=== PATIENT | male | born 1945 | race Caucasian/White ===

== ENCOUNTER → 2017-06-03 | Outpatient (CLI) | payer OTHER ==
[~2017-06-03] MED LIST: ALPH300C PO; ASCO1TAB2 PO; ASPI-496 PO; GLUC-88 PO; LISI40TA PO; MELA1TAB22 PO; METF500T4 PO; MULT1TAB13 PO; OMEP-110 PO; PRAZ5CAP2 PO; SAW/1TAB2 PO; SERT100T5 PO; SILD25TA PO; SIMV40TA3 PO; TAMS-11 PO; THIA100T6 PO; THYR30TA4 PO; UBIQ100C3 PO; VALS160T3 PO
[2017-06-03 10:50] LABS: ASPARTATE AMINO TRANSFERASE 24 U/L (15-37); BLOOD UREA NITROGEN 20 mg/dL (7-18)
== END | disposition home or self-care (01) ==
LOC: STAR 09:51
PROVIDERS: ATTEND Surgery
DX: Z01.818 Encounter for other preprocedural examination (principal); K42.9 Umbilical hernia without obstruction or gangrene; E11.9 Type 2 diabetes mellitus without complications; I10 Essential (primary) hypertension; K21.9 Gastro-esophageal reflux disease without esophagitis; F32.9 Major depressive disorder, single episode, unspecified; E78.00 Pure hypercholesterolemia, unspecified
CPT/HCPCS: 36415; 80053; 93005

== ENCOUNTER 2017-06-09 05:53 | Day surgery (SDC) | payer OTHER ==
[2017-06-03 10:44] VITALS: BP 140/69
[~2017-06-09] VITALS: Ht 175.3 cm; Wt 98.5 kg
[2017-06-09] MEDS ORDERED: LACTATED RINGERS 1,000 ML IV SCH (06:52)
[2017-06-09] MEDS ORDERED: LIDOCAINE 1%, 2ML SQ PRN (07:00)
[2017-06-09 07:01] VITALS: BP 140/69
[2017-06-09] MEDS ORDERED: BUPIVACAINE/PF 0.5% ONE (07:23)
[2017-06-09] MEDS ORDERED: EPINEPHRINE 1 MG/ML, 1ML ONE (07:23)
[2017-06-09] MEDS ORDERED: PROPOFOL 10 MG/ML, 20ML ONE (07:42)
[2017-06-09] MEDS ORDERED: EPHEDRINE 50 MG/ML, 1ML ONE (07:42)
[2017-06-09] MEDS ORDERED: DEXAMETHASONE 4 MG/ML, 1ML ONE (07:42)
[2017-06-09] MEDS ORDERED: ROCURONIUM 10 MG/ML,10ML ONE (07:42)
[2017-06-09] MEDS ORDERED: NEOSTIGMINE 1 MG/ML, 10ML ONE (07:42)
[2017-06-09] MEDS ORDERED: ONDANSETRON 2MG/ML, 2ML ONE (07:42)
[2017-06-09] MEDS ORDERED: CEFAZOLIN 1,000 MG ONE (07:42)
[2017-06-09] MEDS ORDERED: GLYCOPYRROLATE 0.2MG/1ML, 5ML ONE (07:42)
[2017-06-09] MEDS ORDERED: FENTANYL PF 250 MCG/5ML ONE (07:42)
[2017-06-09] MEDS ORDERED: OXYcodone 5 MG/5 ML ORAL.SOL UDC ONE ×2 (09:14→09:57)
[2017-06-09] MEDS ORDERED: FENTANYL PF 100 MCG/2ML ONE (09:14)
[2017-06-09] MEDS ORDERED: ACETAMINOPHEN 650 MG/20.3 ML UDC ONE (09:14)
[2017-06-09] MEDS ORDERED: KETOROLAC 30 MG/1 ML ONE (09:14)
[2017-06-09] MEDS: FENTANYL PF 100 MCG/2ML IV PRN ×2 (09:18→09:25)
[2017-06-09] MEDS: OXYcodone 5 MG/5 ML ORAL.SOL UDC PO PRN ×2 (09:21→09:58)
[2017-06-09] MEDS ORDERED: ACETAMINOPHEN 325 MG TABLET PO PRN (09:30)
[2017-06-09] MEDS ORDERED: PROMETHAZINE 25 MG/ML, 1ML IV PRN (09:30)
[2017-06-09] MEDS ORDERED: ALBUTEROL SULFATE 2.5 MG/3 ML NPPB PRN (09:30)
[2017-06-09] MEDS ORDERED: METOPROLOL 1 MG/ML, 5ML IV PRN (09:30)
[2017-06-09] MEDS ORDERED: KETOROLAC 30 MG/1 ML IV PRN (09:30)
[2017-06-09] MEDS ORDERED: hydrALAzine 20 MG/ML, 1ML IV PRN (09:30)
[2017-06-09] MEDS ORDERED: HYDROmorphone 2 MG/ML, 1ML ONE (09:35)
[2017-06-09] MEDS ORDERED: LABETALOL 5MG/ML, 20ML ONE (09:35)
[2017-06-09] MEDS: HYDROmorphone 1 MG/ML, 1ML IV PRN ×3 (09:41→10:08)
[2017-06-09] MEDS ORDERED: hydrALAzine 20 MG/ML, 1ML ONE (09:45)
[2017-06-09] MEDS ORDERED: LABETALOL 5MG/ML, 20ML IVPush PRN (10:00)
== END 2017-06-09 15:25 ==
LOC: OUT 05:53
PROVIDERS: ATTEND Surgery
DX: K42.0 Umbilical hernia with obstruction, without gangrene (principal); I10 Essential (primary) hypertension; E78.5 Hyperlipidemia, unspecified; E66.9 Obesity, unspecified; Z68.32 Body mass index [BMI] 32.0-32.9, adult; G47.33 Obstructive sleep apnea (adult) (pediatric); Z79.82 Long term (current) use of aspirin
CPT/HCPCS: 49653; 82962; C1781; J0171; J0360; J0690; J1100; J1170; J1885; J2405; J2704; J2710; J3010; J3490; J7120

== ENCOUNTER 2018-09-11 09:10 | Observation (INO) | payer OTHER, MEDICARE ==
[~2018-09-11] VITALS: Ht 175.3 cm; Wt 99.3 kg
[~2018-09-11 09:10] MED LIST changes: +METF500T17 PO; -METF500T4 PO; +SERT100T32 PO; -SERT100T5 PO; -THIA100T6 PO; +THIA100T67 PO
[2018-09-11 10:18] LABS: BASOPHILS # (AUTO) 0.02 x10^3/uL (0-0.1); BASOPHILS % (AUTO) 0 % (0-1); EOSINOPHILS # (AUTO) 0.26 x10^3/uL (0-0.4); EOSINOPHILS % (AUTO) 5 % (1-7); LYMPHOCYTES # (AUTO) 1.23 x10^3/uL (1-3.4); LYMPHOCYTES % (AUTO) 22 % (22-44); MD NO; MEAN CORPUSCULAR HEMOGLOBIN 32.4 pg (27.5-34.5); MEAN CORPUSCULAR HGB CONC 33.2 g/dL (33.2-36.2); MEAN CORPUSCULAR VOLUME 97.5 fL (81-97); MEAN PLATELET VOLUME 8.7 fL (7.4-10.4); MONOCYTES % (AUTO) 11 % (2-9); NEUTROPHILS # (AUTO) 3.48 x10^3/uL (1.8-6.8); NEUTROPHILS % (AUTO) 62 % (42-75); PLATELET COUNT 224 x10^3/uL (130-400); RED BLOOD COUNT 4.07 x10^6/uL (4.38-5.82); RED CELL DISTRIBUTION WIDTH 12.9 % (9.4-14.8)
[2018-09-11 10:29] LABS: INTERNATIONAL NORMALIZED RATIO 1.03 (0.93-1.1); PROTHROMBIN TIME 10.8 Seconds (9.6-11.5)
[2018-09-11 10:30] LABS: ALANINE AMINOTRANSFERASE 28 U/L (12-78); ALBUMIN 3.5 g/dL (3.4-5.0); ANION GAP 4 mmol/L (5-15); CALCIUM 8.7 mg/dL (8.5-10.1); CHLORIDE 107 mmol/L (98-107); CREATININE 1.11 mg/dL (0.7-1.3)
[2018-09-11 10:34] LABS: ALKALINE PHOSPHATASE 45 U/L (45-117); BILIRUBIN,TOTAL 0.4 mg/dL (0.2-1.0); TOTAL PROTEIN 6.6 g/dL (6.4-8.2); TROPONIN I < 0.015 ng/mL (0.000-0.045)
[2018-09-11] MEDS ORDERED: ACETAMINOPHEN 325 MG TABLET PO PRN (11:30)
[2018-09-11] MEDS ORDERED: ENALAPRILAT 1.25 MG/ML, 2ML IVPush PRN (11:30)
[2018-09-11] MEDS: INSULIN LISPRO 100 UNITS/ML, PEN SQ-INSULIN SCH ×3 (11:30→20:44)
[2018-09-11] MEDS ORDERED: TEMAZEPAM 15 MG CAPSULE PO PRN (11:30)
[2018-09-11] MEDS ORDERED: TEMPLATE NON-FORMULARY MED. (Melatonin/Pyridoxine Hcl (B6)** (Melatonin 3 Mg Tablet**) 1 T PO SCH (11:30)
[2018-09-11] MEDS: OMEPRAZOLE 20 MG CAPSULE.DR PO SCH (11:30)
[2018-09-11] MEDS ORDERED: SERTRALINE 100MG TABLET PO SCH ×2 (11:30→21:00)
[2018-09-11] MEDS ORDERED: ONDANSETRON 2MG/ML, 2ML IVPush PRN (11:30)
[2018-09-11] MEDS ORDERED: NITROGLYCERIN 0.4 MG/SPRAY SL PRN (11:30)
[2018-09-11] MEDS ORDERED: PRAZOSIN 5 MG CAPSULE PO SCH ×2 (11:30→21:00)
[2018-09-11] MEDS ORDERED: NITROGLYCERIN 0.4 MG BOTTLE (25 TABS) SL PRN ×2 (11:30)
[2018-09-11] MEDS: ASPIRIN 81 MG TABLET EC PO SCH (11:30)
[2018-09-11] MEDS: THYROID 30 MG TABLET PO SCH (11:30)
[2018-09-11] MEDS ORDERED: morphine SULFATE 10 MG/ML, 1ML IVPush PRN (11:30)
[2018-09-11] MEDS: THIAMINE 100MG TABLET PO SCH (11:30)
--- NOTE | 2018-09-11 11:38 | NUR ---
SBAR TO FITO FLETCHER VIA TELEPHONE
[2018-09-11 12:27] VITALS: BP 143/74
[2018-09-11] MEDS ORDERED: ENOXAPARIN 40 MG/0.4 ML SQ SCH (12:30)
[2018-09-11] MEDS: TAMSULOSIN 0.4 MG CAP.ER.24H PO SCH (13:47)
[2018-09-11] MEDS: ENOXAPARIN 40 MG/0.4 ML SQ SCH ×2 (14:00→22:59)
[2018-09-11 15:38] LABS: MICROSCOPIC NOT IND
[2018-09-11 15:47] LABS: CULTURE INDICATED? NO
[2018-09-11 16:06] LABS: TROPONIN I < 0.015 ng/mL (0.000-0.045)
[2018-09-11 20:42] VITALS: BP 149/83
[2018-09-11] MEDS ORDERED: SIMVASTATIN 40 MG TABLET PO SCH (21:00)
[2018-09-11] MEDS ORDERED: LISINOPRIL 20 MG TABLET PO SCH (21:00)
[2018-09-11 22:05] LABS: TROPONIN I < 0.015 ng/mL (0.000-0.045)
[2018-09-12 02:45] LABS: HEMOGLOBIN A1C 6.6 % (4.2-6.3)
[2018-09-12 02:48] VITALS: BP 113/68
[2018-09-12] MEDS: THYROID 30 MG TABLET PO SCH (05:46)
[2018-09-12] MEDS: INSULIN LISPRO 100 UNITS/ML, PEN SQ-INSULIN SCH ×2 (07:00→11:00)
[2018-09-12] MEDS ORDERED: REGADENOSON 0.4 MG/5 ML SYRINGE ONE (08:04)
[2018-09-12] MEDS: ASPIRIN 81 MG TABLET EC PO SCH (11:10)
[2018-09-12] MEDS: TAMSULOSIN 0.4 MG CAP.ER.24H PO SCH (11:11)
[2018-09-12] MEDS: OMEPRAZOLE 20 MG CAPSULE.DR PO SCH (11:11)
[2018-09-12] MEDS: THIAMINE 100MG TABLET PO SCH (11:11)
[2018-09-12 12:33] VITALS: BP 149/83
[2018-09-12] MEDS ORDERED: OMEP-110 PO (13:04)
[2018-09-12] MEDS ORDERED: POTA10TA11 PO (13:08)
[2018-09-12] MEDS ORDERED: FURO-93 PO (13:08)
== END 2018-09-12 14:45 | disposition home or self-care (01) ==
LOC: ED 10:01 → SUATTDRO 11:00 → EDIP 11:24 → INTOOBSV 11:24 → 5SO 12:14 → DCLOUNGE 09-12 14:30
PROVIDERS: ADMIT Internal Medicine; ATTEND Internal Medicine
DX: R07.9 Chest pain, unspecified (principal); I10 Essential (primary) hypertension; E11.9 Type 2 diabetes mellitus without complications; E66.9 Obesity, unspecified; E78.5 Hyperlipidemia, unspecified; F32.9 Major depressive disorder, single episode, unspecified; G47.33 Obstructive sleep apnea (adult) (pediatric); K21.9 Gastro-esophageal reflux disease without esophagitis; N40.0 Benign prostatic hyperplasia without lower urinary tract symptoms; Z68.32 Body mass index [BMI] 32.0-32.9, adult; Z80.42 Family history of malignant neoplasm of prostate; Z87.891 Personal history of nicotine dependence; Z90.79 Acquired absence of other genital organ(s); E03.9 Hypothyroidism, unspecified; F43.10 Post-traumatic stress disorder, unspecified
CPT/HCPCS: 36415; 71045; 78452; 80053; 81003; 82962; 83036; 83880; 84443; 84484; 85025; 85379; 85610; 85730; 93005; 93017; 93306; 96372; 99284; A9502; C9898; G0378; J1650; J2785